=== PATIENT | female | born 1970 | race Caucasian/White ===

== ENCOUNTER 2021-04-20 07:41 | Day surgery (SDC) | payer BC ==
[2021-04-18 14:26] LABS: BASOPHILS % (AUTO) 1 % (0-1); EOSINOPHILS % (AUTO) 1 % (1-7); LYMPHOCYTES % (AUTO) 32 % (22-44); MEAN CORPUSCULAR HGB CONC 33.7 g/dL (32.4-35.8); MEAN PLATELET VOLUME 7.3 fL (7.4-10.4); MONOCYTES % (AUTO) 9 % (2-9); NEUTROPHILS % (AUTO) 57 % (42-75); PLATELET COUNT 244 x10^3/uL (130-400); RED BLOOD COUNT 4.18 x10^6/uL (3.82-5.3); RED CELL DISTRIBUTION WIDTH 12.7 % (9.6-15.2)
[2021-04-18 14:35] LABS: MD NO
[2021-04-18 14:47] LABS: MICROSCOPIC NOT IND
[~2021-04-20] VITALS: Ht 167.6 cm; Wt 76.7 kg
[~2021-04-20 07:41] MED LIST: ESCI10TA10 PO; LEVO88TA2 PO
[2021-04-20] MEDS ORDERED: ACETAMINOPHEN 500 MG TABLET PO ONE (08:00)
[2021-04-20] MEDS ORDERED: LIDOCAINE-MPF 1%, 2ML INFIL ONE (08:00)
[2021-04-20] MEDS ORDERED: CHLORHEXIDINE 15 ML UDC PO ONE (08:00)
[2021-04-20] MEDS ORDERED: LACTATED RINGERS 1,000 ML IV SCH (08:00)
[2021-04-20 08:11] VITALS: BP 123/84
[2021-04-20] MEDS ORDERED: MIDAZOLAM 1 MG/ML, 2ML ONE (09:01)
[2021-04-20] MEDS ORDERED: FENTANYL PF 250 MCG/5ML ONE (09:01)
[2021-04-20] MEDS ORDERED: BUPIVACAINE/PF 0.25% ONE (09:34)
[2021-04-20] MEDS ORDERED: EPINEPHRINE 1 MG/ML, 1ML ONE (09:35)
[2021-04-20] MEDS ORDERED: GENTAMICIN 80 MG/2 ML ONE (09:35)
[2021-04-20] MEDS ORDERED: FLUORESCEIN SODIUM 500 MG/5 ML ONE (09:35)
[2021-04-20] MEDS ORDERED: VANCOMYCIN 500 MG ONE (09:35)
[2021-04-20] MEDS ORDERED: LORazepam 2 MG/ML, 1ML IVPush PRN (10:30)
[2021-04-20] MEDS ORDERED: MEPERIDINE/PF 25MG/0.5ML IVPush PRN (10:30)
[2021-04-20] MEDS ORDERED: METHOCARBAMOL 1,000 MG in DEXTROSE 5% 100 ML IV PRN (10:30)
[2021-04-20] MEDS ORDERED: ONDANSETRON 2MG/ML, 2ML IVPush PRN (10:30)
[2021-04-20] MEDS ORDERED: PROMETHAZINE 25 MG/ML, 1ML IVPush PRN (10:30)
[2021-04-20] MEDS ORDERED: OXYcodone 5 MG/5 ML ORAL.SOL UDC PO PRN (10:30)
[2021-04-20] MEDS ORDERED: ACETAMINOPHEN 325 MG TABLET PO PRN (10:30)
[2021-04-20] MEDS ORDERED: PROMETHAZINE 25 MG SUPP PR PRN (10:30)
[2021-04-20] MEDS ORDERED: PROPOFOL 10 MG/ML, 20ML ONE (10:31)
[2021-04-20] MEDS ORDERED: CEFAZOLIN 1,000 MG ONE (10:31)
[2021-04-20] MEDS ORDERED: ONDANSETRON 2MG/ML, 2ML ONE (10:31)
[2021-04-20] MEDS ORDERED: DEXAMETHASONE 4 MG/ML, 5ML ONE (10:31)
[2021-04-20] MEDS ORDERED: OXYcodone 5 MG/5 ML ORAL.SOL UDC ONE (10:50)
[2021-04-20] MEDS ORDERED: FENTANYL PF 100 MCG/2ML ONE (10:50)
[2021-04-20] MEDS ORDERED: ACETAMINOPHEN 650 MG/20.3 ML UDC ONE (10:50)
[2021-04-20] MEDS: FENTANYL PF 100 MCG/2ML IV PRN ×2 (10:54→11:05)
[2021-04-20] MEDS ORDERED: HYDROmorphone 1 MG/ML, 1ML INJ ONE (11:08)
[2021-04-20] MEDS: HYDROmorphone 1 MG/ML, 1ML INJ IVPush PRN ×2 (11:10→11:15)
== END 2021-04-20 13:40 | disposition home or self-care (01) ==
LOC: OUT 07:41
PROVIDERS: ATTEND Obstetrics & Gynecology
DX: N39.3 Stress incontinence (female) (male) (principal); E03.9 Hypothyroidism, unspecified; Z20.822 Contact with and (suspected) exposure to COVID-19; Z79.890 Hormone replacement therapy; Z79.899 Other long term (current) drug therapy; Z90.710 Acquired absence of both cervix and uterus; Z98.890 Other specified postprocedural states
CPT/HCPCS: 36415; 57288; 81003; 85025; 93005; C1771; J0171; J0690; J1100; J1170; J1580; J2250; J2405; J2704; J3010; J3370; J7120; U0003; U0005